=== PATIENT | female | born 1950 | race Hispanic/Latino ===

== ENCOUNTER 2017-06-15 08:18 | Day surgery (SDC) | payer OTHER ==
[~2017-06-15] VITALS: Ht 160 cm; Wt 57.2 kg
[~2017-06-15 08:18] MED LIST: AMLO10TA2 PO; CHOL100040 PO; VALS40TA10 PO
[2017-06-15 09:02] VITALS: BP 179/69
[2017-06-15] MEDS ORDERED: SODIUM CHLORIDE 0.9% 1000ML 1,000 ML IV ONE (09:26)
[2017-06-15] MEDS ORDERED: FENTANYL CITRATE PF 50 MCG/1 ML 2ML VIAL ONE (10:41)
[2017-06-15] MEDS ORDERED: PROPOFOL 10 MG/ML 20ML VIAL IV ONE (10:41)
== END 2017-06-15 11:35 | disposition home or self-care (01) ==
LOC: ENDO 08:18 → DAH 08:18 → ENDO 11:35
PROVIDERS: ATTEND Internal Medicine Gastroenterology
DX: K57.30 Diverticulosis of large intestine without perforation or abscess without bleeding (principal); I10 Essential (primary) hypertension; Z79.899 Other long term (current) drug therapy
CPT/HCPCS: 45378; 93005; A4606; J2704; J3010; J7030

== ENCOUNTER 2018-01-05 07:21 | Observation (INO) | payer OTHER ==
[2018-01-01 14:40] VITALS: BP 183/62
[2018-01-01 15:07] LABS: HEMATOCRIT 40.1 % (36-48); MEAN CORPUSCULAR HGB CONC 33.6 g/dL (32.0-36.0); MEAN CORPUSCULAR VOLUME 83.3 fL (79-99); PLATELET COUNT (AUTO) 137 K/uL (130-400); RED BLOOD CELL COUNT(AUTO) 4.82 MIL/uL (4.00-5.50); RED CELL DISTRIBUTION WIDTH 13.8 % (11.0-15.5); WHITE BLOOD COUNT (AUTO) 7.6 K/uL (4.8-10.8)
[2018-01-01 15:14] LABS: BILIRUBIN,URINE Negative (NEGATIVE); COLOR,URINE Yellow (YELLOW); GLUCOSE, URINE (UA) Negative (NEGATIVE); KETONES,URINE Negative (NEGATIVE); LEUKOCYTE ESTERASE ,URINE Small (NEGATIVE); NITRATE,URINE Negative (NEGATIVE); OCCULT BLOOD,URINE Moderate (NEGATIVE); PROTEIN,URINE Negative (NEGATIVE)
[2018-01-01 15:16] LABS: APPEARANCE,URINE Clear (CLEAR)
[2018-01-01 15:18] LABS: POTASSIUM 3.1 mmol/L (3.5-5.1)
[2018-01-01 15:20] LABS: INR 1.05 (0.85-1.15); PARTIAL THROMBOPLASTIN TIME 29.4 SEC (26.3-35.5)
[2018-01-01 15:45] LABS: BACTERIA,URINE None Seen /HPF (None Seen); RBC,URINE 26-50 /HPF (0-1); SQUAMOUS EPITHELIAL CELL,UR 0-2 /HPF (0-2); WBC,URINE 0-1 /HPF (0-1)
[2018-01-01] MEDS: CEFAZOLIN SODIUM 1 GM VIAL IVP SCH (16:30)
[2018-01-05] VITALS (29 sets, daily range): BP systolic 99–187; BP diastolic 51–88
[~2018-01-05] VITALS: Ht 160 cm; Wt 59.3 kg
[~2018-01-05 07:21] MED LIST changes: -AMLO10TA2 PO; +AMLO10TA6 PO; +LACTATED RINGERS 1000ML 1,000 ML IV SCH; +LOSA1TAB42 PO; -VALS40TA10 PO
[2018-01-05] MEDS ORDERED: LIDOCAINE PF 2% 5ML ABBOJECT ONE (08:20)
[2018-01-05] MEDS ORDERED: PROPOFOL 10 MG/ML 20ML VIAL IV ONE ×2 (08:21→11:15)
[2018-01-05] MEDS ORDERED: MIDAZOLAM HCL 1 MG/ML 2ML VIAL ONE (08:21)
[2018-01-05] MEDS ORDERED: FENTANYL CITRATE PF 50 MCG/1 ML 2ML VIAL ONE ×2 (08:21→11:16)
[2018-01-05] MEDS: CEFAZOLIN SODIUM 1 GM VIAL IVP SCH ×3 (10:20→20:37)
[2018-01-05] MEDS ORDERED: LIDOCAINE 1%-EPI 1:100,000 20 ML VIAL IJ ONE (10:39)
[2018-01-05] MEDS ORDERED: ONDANSETRON HCL 4 MG/2 ML VIAL ONE (10:42)
[2018-01-05] MEDS ORDERED: DEXAMETHASONE SOD PHOSPHATE 10MG/ML 1ML VIAL ONE (10:42)
[2018-01-05] MEDS ORDERED: ESTROGENS,CONJUGATED 0.625 MG/GM 42.5 GM VAG CRM VG ONE (11:05)
[2018-01-05] MEDS ORDERED: MICROFIBRILLAR COLLAGEN 1 GM PACKAGE TP ONE (11:13)
[2018-01-05] MEDS ORDERED: LABETALOL HCL 5 MG/ML 20ML VIAL IV ONE (12:17)
[2018-01-05] MEDS ORDERED: ONDANSETRON HCL MDV 20ML 2 MG/ML VIAL IVP PRN (13:30)
[2018-01-05] MEDS ORDERED: ACETAMINOPHEN 325 MG TAB PO PRN (13:30)
[2018-01-05] MEDS ORDERED: MEPERIDINE-PF 75 MG/ML SYG IM PRN (13:30)
[2018-01-05] MEDS: LACTATED RINGERS 1000ML 1,000 ML IV SCH ×2 (14:17→20:37)
[2018-01-05] MEDS: ACETAMINOPHEN-CODEINE 300/30MG TAB PO PRN (20:43)
[2018-01-06] VITALS (7 sets, daily range): BP systolic 120–162; BP diastolic 56–75
[2018-01-06 04:42] LABS: HEMATOCRIT 36.9 % (36-48); MEAN CORPUSCULAR HEMOGLOBIN 29.1 pg (27.0-33.0); MEAN CORPUSCULAR HGB CONC 35.1 g/dL (32.0-36.0); MEAN CORPUSCULAR VOLUME 82.9 fL (79-99); PLATELET COUNT (AUTO) 134 K/uL (130-400); RED BLOOD CELL COUNT(AUTO) 4.45 MIL/uL (4.00-5.50); RED CELL DISTRIBUTION WIDTH 13.6 % (11.0-15.5); WHITE BLOOD COUNT (AUTO) 9.3 K/uL (4.8-10.8)
[2018-01-06 05:00] LABS: CREATININE 0.9 mg/dL (0.5-1.5); POTASSIUM 4.1 mmol/L (3.5-5.1)
[2018-01-06] MEDS: CEFAZOLIN SODIUM 1 GM VIAL IVP SCH ×3 (05:29→20:18)
[2018-01-06] MEDS: **HM**Cholecalciferol (Vitamin D3) (Vitamin D3) 1,000 UNIT PO SCH (09:00)
[2018-01-06] MEDS: ACETAMINOPHEN-CODEINE 300/30MG TAB PO PRN ×3 (09:04→20:19)
[2018-01-06] MEDS: AMLODIPINE BESYLATE 5 MG TAB PO SCH (09:05)
[2018-01-06] MEDS: LOSARTAN 100 MG TABLET PO SCH (09:05)
[2018-01-06] MEDS: HYDROCHLOROTHIAZIDE 25 MG TABLET PO SCH (09:06)
[2018-01-06] MEDS: LACTATED RINGERS 1000ML 1,000 ML IV SCH (09:08)
[2018-01-07 03:35] VITALS: BP 123/57
[2018-01-07] MEDS: CEFAZOLIN SODIUM 1 GM VIAL IVP SCH (04:34)
[2018-01-07 07:56] VITALS: BP 140/69
[2018-01-07] MEDS: **HM**Cholecalciferol (Vitamin D3) (Vitamin D3) 1,000 UNIT PO SCH (08:19)
[2018-01-07] MEDS: ACETAMINOPHEN-CODEINE 300/30MG TAB PO PRN (08:19)
[2018-01-07] MEDS: AMLODIPINE BESYLATE 5 MG TAB PO SCH (09:26)
[2018-01-07] MEDS: HYDROCHLOROTHIAZIDE 25 MG TABLET PO SCH (09:26)
[2018-01-07] MEDS: LOSARTAN 100 MG TABLET PO SCH (09:26)
[2018-01-07 11:08] VITALS: BP 132/64
== END 2018-01-07 13:55 | disposition home or self-care (01) ==
LOC: DAH 07:21 → DAHIP 07:22 → DAH 07:22 → 3CH 12:31
PROVIDERS: ADMIT Urology; ATTEND Urology
DX: N36.2 Urethral caruncle (principal); N81.0 Urethrocele; I10 Essential (primary) hypertension; Z79.899 Other long term (current) drug therapy; Z98.890 Other specified postprocedural states; Z96.659 Presence of unspecified artificial knee joint; Z79.01 Long term (current) use of anticoagulants
CPT/HCPCS: 36415 ×2; 53265; 71046; 80048 ×2; 81001; 85027 ×2; 85610; 85730; 87088; 88305; 93005; 96374; 96375; 96376 ×2; A4218 ×6; A4344; A4354; A4358; A4600; A5113; G0378 ×55; J0690 ×6; J1100; J2001; J2250; J2405; J2704 ×2; J3010 ×2; J3490 ×2; J7120 ×5

== ENCOUNTER 2018-01-11 17:25 | Inpatient (IN) | payer OTHER ==
[~2018-01-11] VITALS: Ht 160 cm; Wt 59.3 kg
[~2018-01-11 17:25] MED LIST changes: -LACTATED RINGERS 1000ML 1,000 ML IV SCH
[2018-01-11 17:54] LABS: BASOPHILS % (AUTO) 1.5 % (0.0-5.0); EOSINOPHILS % (AUTO) 0.5 % (0.0-8.0); HEMATOCRIT 43.3 % (36-48); LYMPHOCYTES % (AUTO) 22.1 % (21.0-51.0); MEAN CORPUSCULAR HEMOGLOBIN 28.9 pg (27.0-33.0); MEAN CORPUSCULAR HGB CONC 34.3 g/dL (32.0-36.0); MEAN CORPUSCULAR VOLUME 84.4 fL (79-99); MONOCYTES % (AUTO) 9.1 % (3.0-13.0); NEUTROPHILS % (AUTO) 66.8 % (40.0-77.0); PLATELET COUNT (AUTO) 162 K/uL (130-400); RED BLOOD CELL COUNT(AUTO) 5.13 MIL/uL (4.00-5.50); RED CELL DISTRIBUTION WIDTH 13.5 % (11.0-15.5); WHITE BLOOD COUNT (AUTO) 11.5 K/uL (4.8-10.8)
[2018-01-11] MEDS ORDERED: SODIUM CHLORIDE 0.9% 1000ML 1,000 ML IV ONE (17:57)
[2018-01-11 18:03] LABS: APPEARANCE,URINE Clear (CLEAR); BILIRUBIN,URINE Negative (NEGATIVE); COLOR,URINE Yellow (YELLOW); GLUCOSE, URINE (UA) Negative (NEGATIVE); KETONES,URINE Negative (NEGATIVE); LEUKOCYTE ESTERASE ,URINE Large (NEGATIVE); NITRATE,URINE Negative (NEGATIVE); OCCULT BLOOD,URINE Moderate (NEGATIVE); PROTEIN,URINE Negative (NEGATIVE); UROBILINOGEN,URINE 0.2 mg/dL (0.2-1.0)
[2018-01-11 18:07] LABS: PROTHROMBIN TIME 10.5 SEC (9.6-11.6)
[2018-01-11 18:18] LABS: BACTERIA,URINE Few /HPF (None Seen)
[2018-01-11 18:19] LABS: SQUAMOUS EPITHELIAL CELL,UR Few /HPF (0-2)
[2018-01-11 18:20] LABS: WBC,URINE 26-50 /HPF (0-1)
[2018-01-11] MEDS ORDERED: ZOSYN 3.375GM+NS 50ML 50 ML IV ONE (18:45)
[2018-01-11] MEDS ORDERED: SODIUM CHLORIDE 0.9% 100 ML IV ONE (18:46)
[2018-01-11 18:57] LABS: ERYTHROCYTE SEDIMENTATION RATE 40 MM/HR (0-30)
[2018-01-11 19:04] LABS: ALBUMIN 3.8 g/dL (3.5-5.0); BILIRUBIN,TOTAL 0.6 mg/dL (0.2-1.0); CREATININE 0.9 mg/dL (0.5-1.5); CRP QUANTITATIVE 94.1 mg/L (0.00-9.0); POTASSIUM 2.9 mmol/L (3.5-5.1); TOTAL PROTEIN, SERUM 8.4 g/dL (6.0-8.3)
[2018-01-11] MEDS ORDERED: VANCOMYCIN 1GM+NS 250ML 250 ML IV ONE (19:15)
[2018-01-11] MEDS ORDERED: GUAIFENESIN-DM 200/20 MG 10 ML PO PRN (19:45)
[2018-01-11] MEDS ORDERED: ZOLPIDEM TARTRATE 5 MG TAB PO PRN (19:45)
[2018-01-11] MEDS ORDERED: LABETALOL HCL 5 MG/ML 20ML VIAL IV PRN (19:45)
[2018-01-11] MEDS ORDERED: ALPRAZOLAM 0.5 MG TABLET PO PRN (19:45)
[2018-01-11] MEDS ORDERED: LIDOCAINE HCL-MPF 1% 2ML VIAL IVP PRN (20:00)
[2018-01-11] MEDS ORDERED: POTASSIUM CHLORIDE 10% ELIXIR 20 MEQ/15 ML UDCUP PO PRN (20:00)
[2018-01-11] MEDS ORDERED: POTASSIUM CHLORIDE 20MEQ/100ML 100 ML IV PRN (20:00)
[2018-01-11] MEDS ORDERED: POTASSIUM BICARB/CIT AC 25 MEQ TABLET.EFF ONE (20:02)
[2018-01-12] MEDS ORDERED: ZOSYN 3.375GM+NS 50ML 50 ML IV ONE (03:53)
[2018-01-12] MEDS ORDERED: SODIUM CHLORIDE 0.9% 50 ML IV ONE ×3 (03:53→20:34)
[2018-01-12 06:49] LABS: BASOPHILS % (AUTO) 0.8 % (0.0-5.0); EOSINOPHILS % (AUTO) 5.5 % (0.0-8.0); HEMATOCRIT 37.3 % (36-48); LYMPHOCYTES % (AUTO) 28.5 % (21.0-51.0); MEAN CORPUSCULAR HEMOGLOBIN 27.9 pg (27.0-33.0); MEAN CORPUSCULAR HGB CONC 33.3 g/dL (32.0-36.0); MEAN CORPUSCULAR VOLUME 83.9 fL (79-99); NEUTROPHILS % (AUTO) 54.2 % (40.0-77.0); PLATELET COUNT (AUTO) 130 K/uL (130-400); RED BLOOD CELL COUNT(AUTO) 4.44 MIL/uL (4.00-5.50); RED CELL DISTRIBUTION WIDTH 13.9 % (11.0-15.5); WHITE BLOOD COUNT (AUTO) 7.3 K/uL (4.8-10.8)
[2018-01-12 06:59] LABS: CREATININE 0.8 mg/dL (0.5-1.5); POTASSIUM 3.3 mmol/L (3.5-5.1)
[2018-01-12 08:51] VITALS: BP 146/81
[2018-01-12] MEDS: PANTOPRAZOLE SODIUM 40 MG TABLET.DR PO SCH (09:21)
[2018-01-12] MEDS ORDERED: ZOSYN 3.375GM+NS 50ML 50 ML IV SCH (10:00)
[2018-01-12] MEDS ORDERED: ACETAMINOPHEN 325 MG TAB PO PRN (10:15)
[2018-01-12] MEDS ORDERED: MORPHINE SULFATE 2 MG/ML 1ML SYG IVP PRN (10:15)
[2018-01-12] MEDS ORDERED: VANCOMYCIN 1.5 GM in SODIUM CHLORIDE 0.9% 250 ML IV ONE (11:00)
[2018-01-12 11:35] VITALS: BP 155/75
[2018-01-12] MEDS: SODIUM CHLORIDE 0.9% 1000ML 1,000 ML IV SCH (12:03)
[2018-01-12] MEDS: IBUPROFEN 400 MG TABLET PO SCH ×2 (15:15→20:55)
[2018-01-12] MEDS: ZOSYN 3.375GM+NS 50ML 50 ML IV SCH ×2 (15:15→20:53)
[2018-01-12] MEDS: POTASSIUM CHLORIDE 20 MEQ ERTAB PO PRN (15:16)
[2018-01-12 16:50] VITALS: BP 144/76
[2018-01-12 19:28] VITALS: BP 130/65
[2018-01-12] MEDS: VANCOMYCIN 1GM+NS 250ML 250 ML IV SCH (22:47)
[2018-01-12 23:05] VITALS: BP 143/66
[2018-01-13] MEDS: POTASSIUM CHLORIDE 20 MEQ ERTAB PO PRN ×3 (00:41→09:14)
[2018-01-13 03:41] VITALS: BP 131/76
[2018-01-13 04:57] LABS: BASOPHILS % (AUTO) 0.6 % (0.0-5.0); EOSINOPHILS % (AUTO) 7.3 % (0.0-8.0); HEMATOCRIT 34.1 % (36-48); LYMPHOCYTES % (AUTO) 32.6 % (21.0-51.0); MEAN CORPUSCULAR HEMOGLOBIN 28.8 pg (27.0-33.0); MEAN CORPUSCULAR HGB CONC 34.3 g/dL (32.0-36.0); MEAN CORPUSCULAR VOLUME 83.9 fL (79-99); MONOCYTES % (AUTO) 11.4 % (3.0-13.0); NEUTROPHILS % (AUTO) 48.1 % (40.0-77.0); NUCLEATED RED BLOOD CELLS 0.1 % (0.0-0.19); PLATELET COUNT (AUTO) 142 K/uL (130-400); RED BLOOD CELL COUNT(AUTO) 4.06 MIL/uL (4.00-5.50); RED CELL DISTRIBUTION WIDTH 13.7 % (11.0-15.5); WHITE BLOOD COUNT (AUTO) 6.2 K/uL (4.8-10.8)
[2018-01-13 05:10] LABS: CREATININE 0.9 mg/dL (0.5-1.5); POTASSIUM 3.5 mmol/L (3.5-5.1)
[2018-01-13] MEDS: IBUPROFEN 400 MG TABLET PO SCH ×3 (05:54→19:48)
[2018-01-13] MEDS: ZOSYN 3.375GM+NS 50ML 50 ML IV SCH ×3 (05:54→19:48)
[2018-01-13] MEDS: SODIUM CHLORIDE 0.9% 1000ML 1,000 ML IV SCH ×3 (05:57→22:04)
[2018-01-13 08:21] VITALS: BP 136/70
[2018-01-13] MEDS: Cholecalciferol (Vitamin D3) (Vitamin D3) 1,000 UNIT PO SCH (09:00)
[2018-01-13] MEDS: AMLODIPINE BESYLATE 5 MG TAB PO SCH (09:13)
[2018-01-13] MEDS: PANTOPRAZOLE SODIUM 40 MG TABLET.DR PO SCH (09:14)
[2018-01-13] MEDS: LOSARTAN 100 MG TABLET PO SCH (09:14)
[2018-01-13] MEDS: HYDROCHLOROTHIAZIDE 25 MG TABLET PO SCH (09:15)
[2018-01-13 12:19] VITALS: BP 155/68
[2018-01-13] MEDS: VANCOMYCIN 1GM+NS 250ML 250 ML IV SCH ×2 (13:13→22:04)
[2018-01-13 17:00] VITALS: BP 143/68
[2018-01-13 19:23] VITALS: BP 149/77
[2018-01-14] VITALS (7 sets, daily range): BP systolic 115–154; BP diastolic 51–73
[2018-01-14 04:37] LABS: HEMATOCRIT 33.2 % (36-48); MEAN CORPUSCULAR HEMOGLOBIN 28.7 pg (27.0-33.0); MEAN CORPUSCULAR HGB CONC 34.6 g/dL (32.0-36.0); MEAN CORPUSCULAR VOLUME 82.9 fL (79-99); PLATELET COUNT (AUTO) 132 K/uL (130-400); RED CELL DISTRIBUTION WIDTH 13.7 % (11.0-15.5); WHITE BLOOD COUNT (AUTO) 5.6 K/uL (4.8-10.8)
[2018-01-14 04:44] LABS: CREATININE 0.8 mg/dL (0.5-1.5); POTASSIUM 3.5 mmol/L (3.5-5.1)
[2018-01-14] MEDS: IBUPROFEN 400 MG TABLET PO SCH (05:18)
[2018-01-14] MEDS: ZOSYN 3.375GM+NS 50ML 50 ML IV SCH ×3 (05:18→20:15)
[2018-01-14] MEDS: POTASSIUM CHLORIDE 20 MEQ ERTAB PO PRN (05:31)
[2018-01-14] MEDS: Cholecalciferol (Vitamin D3) (Vitamin D3) 1,000 UNIT PO SCH (09:00)
[2018-01-14] MEDS: LOSARTAN 100 MG TABLET PO SCH (10:41)
[2018-01-14] MEDS: HYDROCHLOROTHIAZIDE 25 MG TABLET PO SCH (10:42)
[2018-01-14] MEDS: PANTOPRAZOLE SODIUM 40 MG TABLET.DR PO SCH (10:42)
[2018-01-14] MEDS: AMLODIPINE BESYLATE 5 MG TAB PO SCH (10:42)
[2018-01-14] MEDS: VANCOMYCIN 1GM+NS 250ML 250 ML IV SCH ×2 (10:43→23:42)
[2018-01-14] MEDS: SODIUM CHLORIDE 0.9% 1000ML 1,000 ML IV SCH ×2 (11:58→15:35)
[2018-01-15 03:15] VITALS: BP 138/61
[2018-01-15] MEDS: SODIUM CHLORIDE 0.9% 1000ML 1,000 ML IV SCH (03:59)
[2018-01-15] MEDS: ZOSYN 3.375GM+NS 50ML 50 ML IV SCH (04:33)
[2018-01-15 07:39] VITALS: BP 145/64
[2018-01-15] MEDS: Cholecalciferol (Vitamin D3) (Vitamin D3) 1,000 UNIT PO SCH (09:00)
[2018-01-15] MEDS: PANTOPRAZOLE SODIUM 40 MG TABLET.DR PO SCH (09:50)
[2018-01-15] MEDS: LOSARTAN 100 MG TABLET PO SCH (09:50)
[2018-01-15] MEDS: AMLODIPINE BESYLATE 5 MG TAB PO SCH (09:51)
[2018-01-15] MEDS: HYDROCHLOROTHIAZIDE 25 MG TABLET PO SCH (09:51)
[2018-01-15 11:47] VITALS: BP 139/67
== END 2018-01-15 14:59 | disposition home or self-care (01) | DRG 550 ==
LOC: EDH 17:25 → OBSVTOIN 19:00 → EDHIP 19:00 → INTOOBSV 19:00 → 4BH 01-12 08:06
PROVIDERS: ADMIT Internal Medicine Pulmonary Disease; ATTEND Internal Medicine Pulmonary Disease
DX: M00.9 Pyogenic arthritis, unspecified (principal); I10 Essential (primary) hypertension; Z90.710 Acquired absence of both cervix and uterus
CPT/HCPCS: 36415; 73562; 80048; 80053; 80202; 81001; 82948; 83605; 83735; 84100; 85025; 85027; 85610; 85651; 85730; 86140; 87040; 97039; J2543; J3370; J7030